=== PATIENT | female | born 1955 | race Caucasian/White ===

== ENCOUNTER 2022-04-04 16:02 | Inpatient (IN) | payer MEDICARE, SELFPAY ==
[2022-04-04 17:26] VITALS: BP 185/90; PULSE 92; RESP 16; TEMP 36.6; O2SAT 99
--- NOTE | 2022-04-04 17:42 | PC.ADMIT ---
Patient is 66 year old female patient who was admitted from [facility] following suicide attempt. Patient arrived on unit via stretcher at 1600. Patient presents as pleasant, alert and oriented in all spheres, cooperative, engaged and responsive. Neatly dressed and well groomed. Patient admitted with diagnosis of F33.1 MDD , recurrent episode, moderate and F41.9 Unspecifed anxiety disorder. Patient signed CV and promptly requested a 3 day notice which was also signed. On 04/02/22 patient took intentional overdose of ambien 10 mg, 20-30 tablets. When patient told her EMS was contacted and patient was transported to [facility] ED. Patient described stressors which led to her suicide attempt. She and her moved to the area from [place] during the pandemic to be near her only son and grandson. Patient states that it has been a difficult transition and has found it hard to make friends. Patient's brother recently passed and her nephew is on Hospice with lung cancer. Patient described the situation which led to the suicide attempt. Patient asked son to bring grandson to visit nephew on Hospice and son refused. Patient stated at that point , I was feeling overwhelmed and made a mistake. Patient has appropriate insight into situation. Patient medical history includes Anxiety disorder, Arthritis, Back pain, Depressive disorder, Hyperlipidemia, Kideny stones and Migraines. Patient has no psych providers. Regular meds include Atorvastatin and Cymbalta. Patient stated that she had a large supply of Ambien which she doesn't regularly take becuase she and her winter in [place] so her PCP provided enough meds so she wouldn't run out. Patient oriented to unit. Visitor policy explained. LEgals signed. Patient goal is to return home to her [facility] as soon as possible.
[2022-04-04] MEDS: traZODone HCL 50 MG TABLET PO (20:53)
[2022-04-04] MEDS: Atorvastatin Calcium 20 MG TABLET PO (20:53)
[2022-04-05] MEDS: traZODone HCL 50 MG TABLET PO (01:14)
[2022-04-05 07:27] LABS: Alanine Aminotransferase 16 U/L (0-31); Albumin Level 4.1 g/dL (3.5-5.0); Alkaline Phosphatase 61 U/L (39-117); Anion Gap 11 (12-20); Aspartate Amino Transferase 20 U/L (5-31); Bilirubin Total 0.6 mg/dL (0.0-1.0); Blood Urea Nitrogen 12 mg/dL (9-16); Calcium 9.7 mg/dL (8.4-10.2); Carbon Dioxide 29 mmol/L (22-29); Chloride 107 mmol/L (96-108); Cholesterol 174 mg/dL; Creatinine Clr Calc Pharmacy 67.6; Estimated Glomerular Filt Rate > 60; Glucose Fasting 109 mg/dL (60-99); HDL Cholesterol 46 mg/dL; LDL Cholesterol Calculated 108 mg/dl; Potassium 4.1 mmol/L (3.3-5.1); Sodium 143 mmol/L (135-145); Total Protein 6.5 g/dL (6.5-8.0); Triglycerides 102 mg/dL
--- NOTE | 2022-04-05 08:46 | HO.HSGERICON ---
History of Present Illness Data of Consult Service Date: 04/05/22 Primary Care Provider: Hui Rogers MD [facility] Reason for consult: Routine admission 66-year-old female admitted overnight after ingesting unknown amount of Ambien. She denies past suicidal attempts. She states she sees a primary care once a year and has a never had any issues with hypertension; states outside pressures run 110 to 120/70's. Voices no complaints this morning Review of Systems Review of Systems: Denies chest pain Denies shortness of breath Denies nausea vomiting diarrhea Denies fever chills PMFSH Social History Household Members: Spouse Housing: House Do you presently have visiting nurse or other home services: No Patient Tobacco Use Status: Never used Tobacco Use of substances other than those prescribed or required for medical reasons: No Have you been hit, kicked, punched, or otherwise hurt by someone within the past year? If so, by whom?: No Do you feel safe in your current relationship?: Yes Is there a partner from a previous relationship who is making you feel unsafe now?: No Are you made to feel afraid or neglected: No Advance Directives: No Advance Directives Information Provided: No Advance Directives on File: No Do you have thoughts of harming others: None Do you have a plan to hurt others: No Plan Recently lost weight without trying: No How much weight loss: Not applicable Eating poorly because of decreased appetite: No Nutrition screen score: 0 Nutrition Risks: No Nutritional Risk Patient : No : No Poor oral hygiene: No Meds Allergies Allergy/AdvReac Type Severity Reaction Status Date / Time ciprofloxacin Allergy Unknown Unknown Unverified 04/04/22 16:25 metoclopramide [From Reglan] Allergy Unknown Unknown Unverified 04/04/22 16:25 Penicillins Allergy Unknown Unknown Unverified 04/04/22 16:25 Sulfa (Sulfonamide Allergy Unknown Unknown Unverified 04/04/22 16:25 Antibiotics) alendronate sodium AdvReac Unknown Unverified 04/04/22 16:25 Active Medications: Current Medications Acetaminophen (Acetaminophen 325 Mg Tablet) 650 mg PO Q6H PRN PRN Reason: Headache/Pain Mild Scale (1-3) Al Hydroxide/Mg Hydroxide (Magnesium Hydrox/Alum Hydrox 30 Ml Oral.Susp) 30 ml PO Q6H PRN PRN Reason: Heartburn/Nausea Atorvastatin Calcium (Atorvastatin Calcium 20 Mg Tablet) 20 mg PO BEDTIME SOPHIA Last Admin: 04/04/22 20:53 Dose: 20 mg Documented by: Duloxetine HCl (Duloxetine Hcl 60 Mg Capsule.Dr) 60 mg PO DAILY SOPHIA Hydroxyzine HCl (Hydroxyzine Hcl 25 Mg Tablet) 25 mg PO BEDTIME PRN PRN Reason: Anxiety Magnesium Hydroxide (Milk Of Magnesia 30 Ml Oral.Susp) 30 ml PO DAILY PRN PRN Reason: Constipation Naproxen (Naproxen 500 Mg Tablet) 500 mg PO Q12H PRN PRN Reason: pain/inflammation Nicotine Polacrilex (Nicotine Polacrilex 2 Mg Gum) 2 mg BUCCAL Q2H PRN PRN Reason: Nicotine Cravings Trazodone HCl (Trazodone Hcl 50 Mg Tablet) 50 mg PO BEDTIME PRN PRN Reason: Insomnia Last Admin: 04/05/22 01:14 Dose: 50 mg Documented by: Home Medications Medication Instructions Recorded Confirmed Last Taken Type atorvastatin 20 mg tablet 20 mg PO BEDTIME 04/04/22 04/04/22 Unknown History duloxetine 60 mg capsule,delayed 60 mg PO DAILY 04/04/22 04/04/22 Unknown History release (Cymbalta) zolpidem 10 mg tablet (Ambien) 10 mg PO NEEDED PRN 04/04/22 04/04/22 Unknown History Results Labs CBC and Chem 7: 04/05/22 06:51 Labs: Laboratory Results - last 24 hr 04/05/22 06:51 Anion Gap 11 L Estim Creat Clear Calc 67.6 Estimated GFR > 60 Fasting Glucose 109 H Calcium 9.7 Total Bilirubin 0.6 AST 20 ALT 16 Alkaline Phosphatase 61 Total Protein 6.5 Albumin 4.1 Triglycerides 102 Cholesterol 174 LDL Cholesterol, Calc 108 HDL Cholesterol 46 Assessment and Plan (1) Physical exam, routine: Status: Acute Plan 66-year-old female admitted after Ambien overdose. No ill effects from same. Routine medical exam nonfocal. No acute medical issues. Not treat hypertension at this time leave it to be related to present situation. Staff will follow and contact me with updates. Medically acceptable for admission Physical Exam Vital Signs: Last Vital Signs Temp 97.8 F 04/04/22 17:26 Pulse 92 04/04/22 17:26 Resp 16 04/04/22 17:26 BP 185/90 H 04/04/22 17:26 Pulse Ox 99 04/04/22 17:26 Const Other: Awake alert oriented x3 no acute distress HENMT Other: Mucous membranes moist Resp Other: Clear to auscultation bilaterally. No rales rhonchi or wheezes Cardio Other: No S4; positive S1-S2; no S3 is murmurs rubs or gallops GI Other: Soft nontender nondistended with normoactive bowel sounds Neuro Other: Cranial nerves 2-12 grossly intact as tested. Motor is 5/5 in all extremities. Sensation is intact. Cognition is appropriate Cranial nerves: Yes CN's II-XII intact bilaterally Extrem Other: No edema bilaterally Psych Other: Well groomed; pleasant affect.. . Good eye contact
--- NOTE | 2022-04-05 11:01 | PM.PSYDC ---
DS: Providers Provider Date of Service: 04/05/22 Date of admission: 04/04/22 16:02 Date of discharge: 04/05/22 Primary care physician: Hui Rogers MD Consults: 04/04/22 16:27 Consult to Hospitalist Routine Consulting Provider: Hospitalist Reason For Exam: Direct admission H and P DS: Diagnosis Discharge Diagnosis (1) Major depression: Start date: 04/05/22 Status: Acute DS: Medications Discharge Medications Home Medications: Home Medications Medication Instructions Recorded Confirmed atorvastatin 20 mg tablet 20 mg PO BEDTIME 04/04/22 04/04/22 duloxetine 60 mg capsule,delayed 60 mg PO DAILY 04/04/22 04/04/22 release (Cymbalta) zolpidem 10 mg tablet (Ambien) 10 mg PO NEEDED PRN 04/04/22 04/04/22 Mental Status Exam Mental Status Exam Patient Appearance: Well Grooomed Patient Orientation: Person, Place, Time and Situation Level of Consciousness: Awake Patient Behavior: Appropriate Mood Description: Calm and Relaxed Affect Description: Calm Patient Cognition Impaired: No Ability to Follow Directions: Excellent Speech Pattern: Clear Memory Description: Intact Hallucinations: None Delusions: Not Present Thought Process: Intact Thought Content: positive for Intact Judgement: Good Data Data Completed and Pending Completed studies during hospitalization [Text1]: 04/05/22 06:51 Sodium 143 Potassium 4.1 Chloride 107 Carbon Dioxide 29 Anion Gap 11 L BUN 12 Creatinine 0.77 Estim Creat Clear Calc 67.6 Estimated GFR > 60 Fasting Glucose 109 H Calcium 9.7 Total Bilirubin 0.6 AST 20 ALT 16 Alkaline Phosphatase 61 Total Protein 6.5 Albumin 4.1 Triglycerides 102 Cholesterol 174 LDL Cholesterol, Calc 108 HDL Cholesterol 46 DS: Summary Hospital Course Hospital Course: Admitted from [facility] after impulsive overdose attempt with Ambien. Stresses included , family cancer, relocation, no providers. Upset at interaction with son, impulsive OD. Immediately told - [facility], medical floor observation, then psych transfer. Submitted 3 day notice. Pleasant engaged. Articulate. Remorseful. Supportive and engaged family. No psychosis. No SI or HI. Feels mood ok but could benefit from therapy and transitioning back to celexa and increase dose to 30mg Past psych- first inpatinet. No prior attempts. Was on celexa 20mh x 20+ years. Changed to cymbalta Oct 2021- depression, sadness, leg pain. Social Hx: 48 years. Stable and supportive. Admin work history. College educated. No substance issues Status at Discharge Cognitive/behavioral status at discharge: Pleasant. engaged. Bright affect. No SI. No SI. No psychosis. Motivated. Supportive family and , also advocating for discharge. Resourceful. 3 day notice and no grounds for involuntary retention. Will taper off cymbalta- 30mg daily x 2 weeks and restart celexa 10mg x 2 weeks, 20mg x 2 weeks, then 30mg daily. Functional status at discharge: independent ambulation Overall status at discharge: patient is progressing back to baseline Time Spent with Patient Time attestation: Total time spent providing and/or coordinating discharge services: Discharge Plan Discharge Patient Disposition: Home, Self-Care Discharge Diagnosis: major depression Referrals: Hui Rogers MD [Primary Care Provider] - 1 Week Discharge Medications: New duloxetine 30 mg Capsule,Delayed Release(Dr/Ec) 30 mg PO DAILY 14 Days Qty: 14 0RF Rx Instructions: taper off- 1 cap daily for 2 weeks then stop citalopram 20 mg tablet 20 mg PO DAILY Qty: 30 0RF Rx Instructions: 1 tab daily (with 10mg tab) total daily dose 30mg citalopram 10 mg tablet 10 mg PO DAILY Qty: 30 0RF Rx Instructions: 1 tab daily. (Take with 20mng tab) Total dose 30mg Continued atorvastatin 20 mg Tablet 20 mg PO BEDTIME 0RF Discontinued zolpidem [Ambien] 10 mg Tablet 10 mg PO NEEDED PRN (Reason: Insomnia) 0RF duloxetine [Cymbalta] 60 mg Capsule,Delayed Release(Dr/Ec) 60 mg PO DAILY 0RF Discharge Orders: Discharge Order (Routine); Ordered 04/05/22 Ordered By: Amrit Sands Diet: advance to usual diet Activity on Discharge: No Restrictions Stand Alone Forms: Patient Portal Discharge page Care Plan Goals: Will arrange own therapy. [facility] [phone] Med changes: Cymbalta tapering off- 30mg x 2 weeks then stop restart citalopram 10mg x 2 weeks, 20mg x 2 weeks, then 30mg daily PCP can continue medications Health Concerns: None Plan of Treatment: Will arrange own therapy. [facility] [employer] [employer] [phone] Med changes: Cymbalta tapering off- 30mg x 2 weeks then stop restart citalopram 10mg x 2 weeks, 20mg x 2 weeks, then 30mg daily PCP can continue medications Assessment: Improvement in mood and no grounds for involuntary retention. Supportive family and resourceful
== END 2022-04-05 11:45 | disposition home or self-care (01) | DRG 881 ==
PROVIDERS: Psychiatry & Neurology Psychiatry; Admitting Provider Psychiatry & Neurology Psychiatry; PCP Family Medicine; Visit Provider Psychiatry & Neurology Psychiatry
DX: F32.9 Major depressive disorder, single episode, unspecified (principal); Z88.0 Allergy status to penicillin; Z88.1 Allergy status to other antibiotic agents; Z88.2 Allergy status to sulfonamides; Z88.8 Allergy status to other drugs, medicaments and biological substances; Z79.899 Other long term (current) drug therapy
CPT/HCPCS: 36415; 80053; 80061